=== PATIENT | male | born 1955 | race Caucasian/White ===

== ENCOUNTER 2018-04-12 12:14 | Emergency (ER) | payer OTHER ==
[~2018-04-12] VITALS: Ht 190.5 cm; Wt 126.4 kg
[2018-04-12 12:57] LABS: HEMATOCRIT 42.3 % (39.0-50.0); IMMATURE GRANULOCYTES 0.4 % (0.0-5.0); MEAN CELL VOLUME 92.6 fL CALC (80.0-100.0); MEAN CORPUSCULAR HGB 30.6 pG CALC (26.0-32.0); MEAN CORPUSCULAR HGB CONC 33.1 g/L CALC (32.0-36.0); NEUT# 8.35 thou/uL (1.82-7.42); RED BLOOD COUNT 4.57 mill/uL (4.70-6.10); RED CELL DISTRI WIDTH 14.6 % (11.5-15.5)
[2018-04-12] MEDS ORDERED: BAYER ASPIRIN E81 MG PO (12:57)
[2018-04-12] MEDS ORDERED: DEMADEX20 MG PO (12:57)
[2018-04-12] MEDS ORDERED: HYDROCO/APAP1 TA9 PO (12:58)
[2018-04-12] MEDS ORDERED: ALLOPURINOL100 MG PO (12:58)
[2018-04-12] MEDS ORDERED: COLCRYS PO (12:59)
[2018-04-12] MEDS ORDERED: CARVEDILOL6.25 MG PO (13:00)
[2018-04-12] MEDS ORDERED: FUROSEMIDE40 MG PO (13:01)
[2018-04-12] MEDS ORDERED: METFORMIN500 MG PO (13:01)
[2018-04-12] MEDS ORDERED: ENTRESTO 24-261 TAB PO (13:02)
[2018-04-12] MEDS ORDERED: ZINC50 M1 PO (13:03)
[2018-04-12] MEDS ORDERED: MAGNESIUM500 M2 PO (13:03)
[2018-04-12] MEDS ORDERED: POTASSIMIN75 MG PO (13:04)
[2018-04-12] MEDS ORDERED: EQL ANTACID U1000 MG PO (13:05)
[2018-04-12 13:14] LABS: ALBUMIN 3.8 g/dL (3.2-5.0); CREATININE 1.5 mg/dL (0.7-1.3); POTASSIUM 4.8 mmol/l (3.5-5.1); TOTAL PROTEIN 6.3 g/dL (6.3-8.2)
[2018-04-12 15:19] VITALS: BP 109/66
== END 2018-04-12 15:19 | disposition short-term general hospital (02) | DRG 310 ==
LOC: ED 12:14 → ED-I 14:30 → ED 15:19
PROVIDERS: Family Medicine
DX: I48.91 Unspecified atrial fibrillation (principal); I50.9 Heart failure, unspecified; R00.2 Palpitations; R42 Dizziness and giddiness; Z95.0 Presence of cardiac pacemaker; Z79.82 Long term (current) use of aspirin; I10 Essential (primary) hypertension; E11.9 Type 2 diabetes mellitus without complications; Z79.84 Long term (current) use of oral hypoglycemic drugs